=== PATIENT | female | born 1930 | race Caucasian/White ===

== ENCOUNTER 2017-04-04 13:44 | Inpatient (IN) | payer MEDICARE ==
[~2017-04-04] VITALS: Ht 162.6 cm; Wt 74.4 kg
--- NOTE | 2017-04-04 13:52 | NUR ---
PT ANGEL FROM [facility]. PER REPORT, PT IS MORE ALTERED THAN USUAL. WAS SEEN AT A DIFFERENT HOSPITAL 2 DAYS AGO. PLACED ON MONITOR. 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 STABLE VITALS AWAITING MD CASTRO.
--- NOTE | 2017-04-04 13:56 | NUR ---
DR HER AT BEDSIDE FOR EVAL.
--- NOTE | 2017-04-04 14:06 | NUR ---
IV LINE STARTED BLOOD DRAWN AND SENT TO LAB.
--- NOTE | 2017-04-04 14:16 | NUR ---
RADIOLOGY AT BEDSIDE FOR CHEST XRAY.
[2017-04-04 14:18] LABS: BASOPHILS # (AUTO) 0.1 /CMM (0.0-0.2); BASOPHILS % (AUTO) 0.4 % (0.0-2.0); EOSINOPHILS # (AUTO) 0.1 /CMM (0.0-0.7); EOSINOPHILS % (AUTO) 0.4 % (0.0-6.0); HEMATOCRIT 41 % (33-45); HEMOGLOBIN 13.1 g/dL (11.5-14.8); LYMPHOCYTES # (AUTO) 1.5 /CMM (0.8-4.8); LYMPHOCYTES % (AUTO) 10.5 % (20.0-44.0); MEAN CORPUSCULAR HEMOGLOBIN 28 PG (26.0-33.0); MEAN CORPUSCULAR HGB CONC 32 g/dl (31.0-36.0); MEAN CORPUSCULAR VOLUME 86 fL (82-100); MONOCYTES % (AUTO) 7.3 % (2.0-12.0); NEUTROPHILS # (AUTO) 11.5 /CMM (1.8-8.9); NEUTROPHILS % (AUTO) 81.4 % (43.0-81.0); PLATELET COUNT (AUTO) 368 /CMM (150-450); RED BLOOD CELL COUNT(AUTO) 4.73 MIL/uL (4.0-5.2); WHITE BLOOD COUNT (AUTO) 14.1 K/uL (4.3-11.0)
[2017-04-04] MEDS ORDERED: IV NS 0.9% 1,000 ML IV ONE ×2 (14:30→15:00)
[2017-04-04 14:35] LABS: INR 1.42 (0.87-1.13)
[2017-04-04] MEDS ORDERED: ZOLP5TAB2 PO (14:37)
[2017-04-04] MEDS ORDERED: MEMA5TAB PO (14:37)
[2017-04-04] MEDS ORDERED: SIMV20TA6 PO (14:37)
[2017-04-04] MEDS ORDERED: QUET25TA PO (14:37)
[2017-04-04] MEDS ORDERED: NIFE10CA2 PO (14:37)
[2017-04-04] MEDS ORDERED: DIVA250T6 PO ×2 (14:37)
[2017-04-04] MEDS ORDERED: QUET50TA PO (14:37)
[2017-04-04 14:39] LABS: APPEARANCE,URINE CLEAR (CLEAR); BILIRUBIN,URINE 1+ (NEGATIVE); BLOOD, URINE NEGATIVE Ery/uL (NEGATIVE); COLOR,URINE YELLOW (YELLOW); KETONES,URINE NEGATIVE (NEGATIVE); LEUKOCYTE ESTERASE ,URINE NEGATIVE (NEGATIVE); NITRITE, URINE NEGATIVE (NEGATIVE); PROTEIN,URINE TRACE mg/dl (NEGATIVE); UGLUCOSE NEGATIVE (NEGATIVE); UROBILINOGEN,URINE 0.2 EU/dL (0.2)
[2017-04-04 14:41] LABS: TROPONIN I < 0.017 ng/mL (0.00-0.056)
[2017-04-04 14:44] LABS: BACTERIA,URINE Few /HPF (None Seen); RBC,URINE 0-2 /HPF (0-2); SQUAMOUS EPITHELIAL CELL,UR Moderate /HPF (None Seen)
[2017-04-04 14:49] LABS: ALANINE AMINOTRANSFERASE 30 U/L (12-78); ALBUMIN 2.1 g/dL (3.4-5.0); ALKALINE PHOSPHATASE 87 U/L (46-116); ASPARTATE AMINOTRANSFERASE 61 U/L (15-37); BILIRUBIN,DIRECT 0.2 mg/dL (0.0-0.2); BILIRUBIN,TOTAL 0.7 mg/dL (0.2-1.0); CALCIUM, SERUM 9.5 mg/dL (8.5-10.1); CARBON DIOXIDE 31 mmol/L (21-32); CHLORIDE 117 mmol/L (98-107); CREATININE 1.1 mg/dL (0.6-1.3); GLUCOSE 131 mg/dL (74-106); POTASSIUM 4.1 mmol/L (3.5-5.1); UREA NITROGEN, BLOOD 49 mg/dL (7-18)
[2017-04-04 14:50] LABS: SODIUM SERUM 158 mmol/L (136-145)
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
--- NOTE | 2017-04-04 15:19 | NUR ---
DR. MARIANGEL OLSON.
[2017-04-04] MEDS ORDERED: IV D5/0.45 NACL 1,000 ML IV PRN (15:46)
[2017-04-04] MEDS ORDERED: ONDANSETRON HCL/PF 4 MG/2 ML VIAL IVP PRN (16:00)
[2017-04-04] MEDS ORDERED: MAGNESIUM HYDROXIDE 30 ML UDC PO PRN (16:00)
[2017-04-04] MEDS ORDERED: Z GUARD REMEDY 2 OZ OINT TP PRN (16:00)
[2017-04-04] MEDS ORDERED: ZOLPIDEM TARTRATE 5 MG TABLET PO PRN (16:00)
[2017-04-04] MEDS ORDERED: MAG HYDROX/AL HYDROX/SIMETH 30 ML UDC PO PRN (16:00)
--- NOTE | 2017-04-04 16:44 | NUR ---
PT TRANSFERED TO 324.2 BEDSIDE REPORT GIVEN TO MARIBELL.
[2017-04-04] MEDS: HYDROCODONE/APAP 5/325MG 1 EACH TABLET PO PRN (18:07)
--- NOTE | 2017-04-04 19:14 | NUR ---
RN NOTES: DR AUGUST ORDERED A STAT XRAY OF HIP
--- NOTE | 2017-04-04 19:30 | NUR ---
TELE/RN NOTES RECEIVED PT. LYING IN BED. PT. IS CONFUSED AND ONLY ALERT TO SELF. BREATHING EVEN AND UNLABORED ON ROOM AIR. NO SOB, RESPIRATORY DISTRESS OR S/S OF PAIN NOTED AT THIS TIME. PT. WITH EXTERNAL AUTOMATION QA TESTER PRESENT AND INTACT. CURRENT RHYTHM = SINUS RHYTHM HR 78. PT. WITH RIGHT AC 22 GAUGE PERIPHERAL IV PRESENT, PATENT AND INTACT ADMINISTERING TO PT. D5 1/2 NS @ 125 ML/HR. BED LOCKED AND IN LOWEST POSITION, SIDE RAILS UP X3, BED ALARM ON, CALL LIGHT WITHIN REACH, WILL CONTINUE TO MONITOR.
--- NOTE | 2017-04-04 19:40 | NUR ---
RN NOTES: PATIENT CAME FROM ER AT 1640. PATIENT CONFUSED. AOX1. SPEECH WAS UNCLEAR. AFTER HYDRATION AND AT END OF SHIFT, PATIENT SEEMS MORE AWARE OF SURROUNDINGS WITH CLEAR SPEECH. IV ON RIGHT AC GAUGE 20 WAS NOT PATENT. A NEW IV LINE WAS STARTED ON RIGHT AC GAUGE 22, IV HYDRATION STARTED RIGHT AWAY. PATIENT PROVIDED WITH WATER, 480 CC OF APPLE AND CRANBERRY JUICE. PATIENT TOLERATING VERY WELL. NO COUGHING UPON SWALLOW. NO SIGNS OF ASPIRATION. CONTACTED [facility] FOR PADS FOR SEIZURE PRECAUTIONS. NO SEIZURES NOTED DURING SHIFT PATIENT ON TELE MONITOR WITH SINUS RHYTHM -SINUS TACHYCARDIA , HEART RATES OF 60-102. FACIAL GRIMACING INDICATE THAT PAIN HAS SUBSIDED AFTER NORCO ADMINISTRATION PATIENT REFUSED SKIN PICTURES, BENEFITS AND RISKS EXPLAINED. BED IN LOWEST LOCKED POSITION.CALL LIGHT WITHIN REACH. ENDORSED TO NEXT SHIFT
[2017-04-04 20:00] VITALS: BP 104/60
--- NOTE | 2017-04-04 21:26 | NUR ---
TELE/RN NOTES NOTIFIED [facility] [employer]ER[employer]ED M[employer] RECORDER DR. DES AUGUST ORDERED STAT BILATERAL HIP XRAY DUE TO PT. EXPERIENCING PAIN WHEN MOVING/REPOSITIONING. PT. IS UNABLE TO TURN AND REPOSITION AT THIS TIME DUE TO PAIN. REPORTING CONSULTANT RECOMMENDED CT PELVIS INSTEAD OF BILATERAL HIP XRAY. PER DR. NUNES NEW ORDER: CANCEL STAT BILATERAL HIP XRAY, ORDER CT PELVIS WITHOUT CONTRAST AND MORPHINE 2MG IV Q4 HOUR PRN SEVERE PAIN. WILL CARRY OUT ORDERS. WILL CONTINUE TO MONITOR.
[2017-04-04] MEDS ORDERED: MORPHINE SULFATE INJ 2 MG/ML DISP.SYRIN IV PRN (21:30)
[2017-04-04] MEDS ORDERED: CEFTRIAXONE 1 G in IV D5W 50 ML IV SCH (22:00)
--- NOTE | 2017-04-04 22:13 | NUR ---
PT IN TOO MUCH PAIN FOR CT SCAN, FELICITA BROOKE WILL CALL WHEN READY.
[2017-04-04] MEDS ORDERED: CEFTRIAXONE 1 G VIAL ONE (22:43)
--- NOTE | 2017-04-04 23:53 | NUR ---
TELE/RN NOTES PT. LEFT THE FLOOR VIA BED ACCOMPANIED BY RADIOLOGY TECHS AND NURSE FOR CT OF PELVIS WITHOUT CONTRAST. WILL CONTINUE TO MONITOR.
--- NOTE | 2017-04-05 00:15 | NUR ---
TELE/RN NOTES PT. ARRIVED BACK TO THE FLOOR VIA BED FROM CT PELVIS WITHOUT CONTRAST. WILL CONTINUE TO MONITOR.
--- NOTE | 2017-04-05 06:39 | NUR ---
MS/RN NOTES PT. IS LYING IN BED RESTING. BREATHING EVEN AND UNLABORED ON ROOM AIR. NO SOB, RESPIRATORY DISTRESS OR S/S OF PAIN NOTED AT THIS TIME. PT. WITH RIGHT AC 22 GAUGE PERIPHERAL IV PRESENT, PATENT AND INTACT ADMINISTERING TO PT. D5 1/2 NS @ 125 ML/HR. ALL PT. NEEDS MET. PT. CONTINUES TO REFUSE TURNING AND REPOSITIONING. EDUCATED PT. ON IMPORTANCE OF TURNING AND REPOSITIONING, PT. IS ALERT TO SELF AND CONTINUES TO REFUSE. PT. CONTINUES TO REFUSE PICTURES AT THIS TIME. BED LOCKED AND IN LOWEST POSITION, SIDE RAILS UP X3, BED ALARM ON, CALL LIGHT WITHIN REACH, WILL ENDORSE TO DAYSSDFT NURSE FOR CONTINUITY OF CARE.
[2017-04-05 06:44] LABS: BASOPHILS % (AUTO) 0.2 % (0.0-2.0); EOSINOPHILS # (AUTO) 0.2 /CMM (0.0-0.7); EOSINOPHILS % (AUTO) 1.4 % (0.0-6.0); HEMATOCRIT 35 % (33-45); HEMOGLOBIN 11.2 g/dL (11.5-14.8); LYMPHOCYTES # (AUTO) 1.4 /CMM (0.8-4.8); LYMPHOCYTES % (AUTO) 11.5 % (20.0-44.0); MEAN CORPUSCULAR HEMOGLOBIN 28 PG (26.0-33.0); MEAN CORPUSCULAR HGB CONC 32 g/dl (31.0-36.0); MEAN CORPUSCULAR VOLUME 86 fL (82-100); MONOCYTES # (AUTO) 0.9 /CMM (0.1-1.30); MONOCYTES % (AUTO) 7.1 % (2.0-12.0); NEUTROPHILS # (AUTO) 9.8 /CMM (1.8-8.9); NEUTROPHILS % (AUTO) 79.8 % (43.0-81.0); PLATELET COUNT (AUTO) 315 /CMM (150-450); RDW COEFFICIENT OF VARIATION 15.6 (11.5-15.0); RED BLOOD CELL COUNT(AUTO) 4.04 MIL/uL (4.0-5.2); WHITE BLOOD COUNT (AUTO) 12.3 K/uL (4.3-11.0)
[2017-04-05 07:23] LABS: ALANINE AMINOTRANSFERASE 21 U/L (12-78); ALBUMIN 1.6 g/dL (3.4-5.0); ALKALINE PHOSPHATASE 64 U/L (46-116); ASPARTATE AMINOTRANSFERASE 43 U/L (15-37); BILIRUBIN,TOTAL 0.4 mg/dL (0.2-1.0); CALCIUM, SERUM 8.4 mg/dL (8.5-10.1); CARBON DIOXIDE 30 mmol/L (21-32); CHLORIDE 121 mmol/L (98-107); CREATININE 0.8 mg/dL (0.6-1.3); GLUCOSE 88 mg/dL (74-106); MAGNESIUM 2.5 mg/dL (1.8-2.4); PHOSPHORUS 2.4 mg/dL (2.5-4.9); POTASSIUM 3.2 mmol/L (3.5-5.1); TOTAL PROTEIN, SERUM 7.3 g/dL (6.4-8.2); UREA NITROGEN, BLOOD 31 mg/dL (7-18)
[2017-04-05 07:25] LABS: CHOLESTEROL 164 mg/dL (<200); HDL CHOLESTEROL 33 mg/dL (40-60); LDL 113 mg/dL (0-99); TRIGLYCERIDES 95 mg/dL (30-150)
[2017-04-05 07:41] LABS: SODIUM SERUM 159 mmol/L (136-145)
[2017-04-05 08:00] VITALS: BP 119/69
[2017-04-05] MEDS ORDERED: IV D5W 500 ML IV PRN (09:00)
--- NOTE | 2017-04-05 10:10 | NUR ---
RN NOTES D5 WATER ORDER INITIATED. PATIENT'S IV LINE NOW PATENT
[2017-04-05] MEDS: IV D5W 1,000 ML IV PRN (10:18)
[2017-04-05] MEDS ORDERED: POTASSIUM CHLORIDE 20 MEQ TAB.PRT.SR PO SCH (11:30)
[2017-04-05] MEDS ORDERED: POTASSIUM CHLORIDE 20 MEQ POWDER PACKET PO SCH (11:39)
[2017-04-05] MEDS ORDERED: K PHOS NEUTRAL 250 MG TABLET PO ONE ×2 (13:00→17:00)
[2017-04-05] MEDS: ACETAMINOPHEN 325 MG TABLET PO PRN (15:14)
[2017-04-05 16:00] VITALS: BP 106/71
--- NOTE | 2017-04-05 19:30 | NUR ---
RN NOTES: PATIENT RESTING IN BED. NONLABORED BREATHING NOTED ON ROOM AIR. NO FACIAL GRIMACING.PATIENT AOX1. DENIES PAIN.MIDLINE ON RIGHT UPPER ARM GAUGE 18 PATENT AND INTACT WITH IV FLUIDS RUNNING. PATIENT TURNED AND REPOSITIONED Q 2 HOURS. SKIN KEPT CLEAN AND DRY. DRESSING ON RIGHT KNEE CHANGED AND MONITORED FOR CHANGES. DURING SHIFT PATIENT NOTED TO BE PULLING IV LINES. DR AUGUST NOTIFIED AND ORDERED SOFT RESTRAINTS ON BOTH UPPER EXTREMITIES. PATIENT CHECKED ON EVERY 15 MINS, RELEASE OF RESTRAINTS DONE PER PROTOCOL, NO SIGNS OF DISTRESS OR INJURY NOTED. PATIENT REORIENTED AND OFFERED FLUIDS AND TOILETING. DR AUGUST ORDERED A MIDLINE INSERTION. MIDLINE WAS INSERTED DURING THIS SHIFT, GAUGE 18. DR AUGUST AWARE OF LABS INCLUDING SODIUM . ORDERED TO DEXTROSE 5 WITH WATER AT 125ML/HOUR BED IN LOWEST LOCKED POSITION. CALL LIGHT WITHIN REACH. ENDORSED TO NEXT SHIFT
--- NOTE | 2017-04-05 19:30 | NUR ---
RN NOTES: NO SEIZURES NOTED DURING SHIFT, SEIZURE PRECUATIONS IMPLEMENTED THROUGHOUT SHIFT
--- NOTE | 2017-04-05 19:35 | NUR ---
MS/RN NOTES RECEIVED PT. LYING IN BED. PT. IS AWAKE, ALERT AND ORIENTED X1. PT. IS CONFUSED. BREATHING EVEN AND UNLABORED ON ROOM AIR. NO SOB, RESPIRATORY DISTRESS OR S/S OF PAIN NOTED AT THIS TIME. PT. WITH RIGHT UPPER ARM MIDLINE PRESENT, PATENT AND INTACT ADMINISTERING TO PT. D5W @ 125 ML/HR. PT. WITH BILATERAL SOFT WRIST RESTRAINTS PRESENT AND INTACT. CIRCULATION CHECK DONE. BED LOCKED AND IN LOWEST POSITION, SIDE RAILS UP X3, BED ALARM ON, CALL LIGHT WITHIN REACH, WILL CONTINUE TO MONITOR.
[2017-04-05 20:00] VITALS: BP 123/71
[2017-04-05] MEDS: CEFTRIAXONE 1 G in IV NS 0.9% 50 ML IV SCH (21:50)
[2017-04-06] MEDS: IV D5W 1,000 ML IV PRN ×3 (02:52→19:48)
--- NOTE | 2017-04-06 06:27 | NUR ---
MS/RN NOTES PT. IS LYING IN BED RESTING. BREATHING EVEN AND UNLABORED ON ROOM AIR. NO SOB, RESPIRATORY DISTRESS OR S/S OF PAIN NOTED AT THIS TIME AND THROUGHOUT SHIFT. PT. WITH RIGHT UPPER ARM MIDLINE PRESENT, PATENT AND INTACT ADMINISTERING TO PT. D5W @ 125 ML/HR. PT. WITH BILATERAL SOFT WRIST RESTRAINTS PRESENT AND INTACT. CIRCULATION CHECK DONE. ALL PT. NEEDS MET. BED LOCKED AND IN LOWEST POSITION, SIDE RAILS UP X3, BED ALARM ON, CALL LIGHT WITHIN REACH, WILL ENDORSE TO DAYSHIFT NURSE FOR CONTINUITY OF CARE.
[2017-04-06 08:00] VITALS: BP 108/73
--- NOTE | 2017-04-06 08:00 | NUR ---
RN NOTES RECEIVED PATIENT IN THE BED , A/OX1/2, CONFUSED,TOTAL CARE, PATIENT HAS NO RESPIRATORY DISTRESS, V/S TAKEN, PATIENT ON BILATERAL ARMS SOFT RESTRAIN CHECKED FOR CIRCULATION, ASSIST TURN AND REPOSITION Q 2 HR,IV MIDLINE ON RIGHT UPPER ARM INFUSING D5W 125 ML/HR, PATIENT NEEDS ATTENDED AND ANTICIPATED. PATIENT MED COMPLIANT. CONTINUED MONITORING.
[2017-04-06 08:19] LABS: CALCIUM, SERUM 7.9 mg/dL (8.5-10.1); CARBON DIOXIDE 28 mmol/L (21-32); CHLORIDE 113 mmol/L (98-107); CREATININE 0.8 mg/dL (0.6-1.3); GLUCOSE 144 mg/dL (74-106); PHOSPHORUS 2.1 mg/dL (2.5-4.9); POTASSIUM 3.4 mmol/L (3.5-5.1); SODIUM SERUM 149 mmol/L (136-145); UREA NITROGEN, BLOOD 19 mg/dL (7-18)
[2017-04-06] MEDS ORDERED: POTASSIUM CHLORIDE 20 MEQ POWDER PACKET PO SCH (11:30)
[2017-04-06] MEDS: HYDROCODONE/APAP 5/325MG 1 EACH TABLET PO PRN ×2 (12:13→17:17)
--- NOTE | 2017-04-06 12:13 | NUR ---
RN NOTES ADMINISTERED NARCO 5/325 MG PO PRN FOR BILATERAL LOWER LEGS PAIN 08/02, PER PATIENT REQUEST, V/S TAKEN BP-108/75, P-80, CALL LIGHT WITHIN TO REACH, CHECKED SOFT RESTRAIN ON BILATERAL WRIST, Q 2 HR FOR CIRCULATION, ASSIST TURN AND REPOSITION Q 2 HR, CONTINUED MONITORING.
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
[2017-04-06 16:00] VITALS: BP 117/82
[2017-04-06] MEDS: HYDROGEL DRESSING 90 GM TUBE TP SCH (17:16)
--- NOTE | 2017-04-06 17:17 | NUR ---
RN NOTES ADMINISTERED NARCO 5/325 MG PO PRN FOR GENERALIZED PAIN, V/S TAKEN BP-117/82, P-96, ASSIST TURN AND REPOSITION Q 2 HR, CALL LIGHT WITHIN TO REACH, CHECKED SOFT RESTRAIN FOR CIRCULATION Q 2 HR, CONTINUED MONITORING.
[2017-04-06] MEDS ORDERED: NEUTRA PHOS 1 POWD.PACKET PO ONE (18:00)
--- NOTE | 2017-04-06 18:30 | NUR ---
RN NOTES MEDICATION WERE ADMINISTERED FOR PAIN EFFECTIVE, ASSIST EATING, TURN AND REPOSITION Q 2 HR, NEED RENDERED, CHECKED SOFT WRIST RESTRAIN Q 2 HR, NO ACUTE DISTRESS AT THIS TIME. CONTINUED MONITORING. ENDORSED ONCOMING NURSE FOR JERRI.
--- NOTE | 2017-04-06 19:32 | NUR ---
MS RN OPENING NOTES: RECEIVED PT IN BED AND IS AWAKE AT THIS TIME IN SEMI-MILLER'S POSITION. PT IS A/OX1. PT ON ROOM AIR AND TOLERATING WELL. PT ON BILATERAL SOFT WRIST RESTRAINTS. BED ALARM ACTIVATED. PT HAS IVON MIDLINE AND IS BEING INFUSED WITH D5W AT 125ML/HR. CALL LIGHT WITHIN PT'S REACH. BED KEPT IN LOW, LOCKED POSITION, AND SIDE RAILS X 3 UP. WILL CONTINUE TO MONITOR PT.
[2017-04-06 20:00] VITALS: BP 113/60
[2017-04-06 20:01] VITALS: BP 113/60
[2017-04-06] MEDS: CEFTRIAXONE 1 G in IV NS 0.9% 50 ML IV SCH (21:12)
[2017-04-07] MEDS: IV D5W 1,000 ML IV PRN ×3 (04:33→22:29)
--- NOTE | 2017-04-07 06:47 | NUR ---
MS RN CLOSING NOTES: ALL NEEDS WERE ATTENDED AND ANTICIPATED FOR. PT IS ON ROOM AIR AND TOLERATING WELL. PT KEPT CLEAN, DRY, AND COMFORTABLE. 2 HOUR CHECKS FOR RESTRAINTS HAVE BEEN PERFORMED. PT STILL ON RESTRAINTS FOR ATTEMPTING TO PULL OUT IV LINES. WOUND TREATMENT PERFORMED ORDERED. PT HAS IV ON IVON AND IS BEING INFUSED WITH D5W AT 125ML/HR. CALL LIGHT WITHIN PT'S REACH. BED KEPT IN LOW, LOCKED POSITION, AND SIDE RAILS X 2UP. WILL ENDORSE TO AM NURSE FOR JERRI.
[2017-04-07 08:00] VITALS: BP 102/57
[2017-04-07 09:17] LABS: BASOPHILS % (AUTO) 0.2 % (0.0-2.0); EOSINOPHILS # (AUTO) 0.1 /CMM (0.0-0.7); EOSINOPHILS % (AUTO) 0.9 % (0.0-6.0); HEMATOCRIT 35 % (33-45); HEMOGLOBIN 11.3 g/dL (11.5-14.8); LYMPHOCYTES # (AUTO) 1.3 /CMM (0.8-4.8); LYMPHOCYTES % (AUTO) 9.9 % (20.0-44.0); MEAN CORPUSCULAR HEMOGLOBIN 28 PG (26.0-33.0); MEAN CORPUSCULAR HGB CONC 33 g/dl (31.0-36.0); MEAN CORPUSCULAR VOLUME 86 fL (82-100); MONOCYTES # (AUTO) 0.8 /CMM (0.1-1.30); MONOCYTES % (AUTO) 5.7 % (2.0-12.0); NEUTROPHILS # (AUTO) 11.3 /CMM (1.8-8.9); NEUTROPHILS % (AUTO) 83.3 % (43.0-81.0); PLATELET COUNT (AUTO) 260 /CMM (150-450); RDW COEFFICIENT OF VARIATION 15.5 (11.5-15.0); RED BLOOD CELL COUNT(AUTO) 4.04 MIL/uL (4.0-5.2); WHITE BLOOD COUNT (AUTO) 13.6 K/uL (4.3-11.0)
[2017-04-07 09:29] LABS: CALCIUM, SERUM 7.6 mg/dL (8.5-10.1); CARBON DIOXIDE 28 mmol/L (21-32); CHLORIDE 106 mmol/L (98-107); CREATININE 0.7 mg/dL (0.6-1.3); GLUCOSE 129 mg/dL (74-106); MAGNESIUM 1.9 mg/dL (1.8-2.4); PHOSPHORUS 2.7 mg/dL (2.5-4.9); POTASSIUM 3.5 mmol/L (3.5-5.1); SODIUM SERUM 143 mmol/L (136-145); UREA NITROGEN, BLOOD 9 mg/dL (7-18)
[2017-04-07] MEDS: HYDROGEL DRESSING 90 GM TUBE TP PRN ×2 (10:46→10:54)
[2017-04-07] MEDS: HYDROGEL DRESSING 90 GM TUBE TP SCH (11:01)
[2017-04-07] MEDS: HYDROCODONE/APAP 5/325MG 1 EACH TABLET PO PRN (11:10)
[2017-04-07 15:55] VITALS: BP 122/79
--- NOTE | 2017-04-07 18:00 | NUR ---
MED. X 1 FOR PAIN WITH NORCO.PTX NOTED INTERNAL ROTATION OF LT. LEG SO MD ORDERED X-RAYS.
--- NOTE | 2017-04-07 19:43 | NUR ---
MS RN OPENING NOTES: RECEIVED PT IN BED AND IS AWAKE AT THIS TIME. PT HAS BILATERAL SOFT WRIST RESTRAINTS ON AT THE MOMENT. PT HAS CALL LIGHT WITHIN REACH. BED ALARM ACTIVATED. BED KEPT IN LOW, LOCKED POSITION, AND SIDE RAILS X 2UP. PT IS A/OX1. PT HAS IVON MIDLINE AND IS BEING INFUSED WITH D5W AT 125ML/HR. WILL CONTINUE TO MONITOR PT.
[2017-04-07 20:00] VITALS: BP 110/65
[2017-04-07] MEDS: CEFTRIAXONE 1 G in IV NS 0.9% 50 ML IV SCH (21:37)
[2017-04-08] MEDS: IV D5W 1,000 ML IV PRN ×2 (05:54→19:41)
--- NOTE | 2017-04-08 07:15 | NUR ---
MS RN CLOSING NOTES: ALL NEEDS WERE ATTENDED AND ANTICIPATED FOR. PT IS ON ROOM AIR AND TOLERATING WELL. PT KEPT CLEAN, DRY, AND COMFORTABLE. 2 HOUR CHECKS FOR RESTRAINTS HAVE BEEN PERFORMED. PT STILL ON RESTRAINTS FOR ATTEMPTING TO PULL OUT IV LINES. WOUND TREATMENT PERFORMED ORDERED. PT HAS IV ON IVON AND IS BEING INFUSED WITH D5W AT 125ML/HR. CALL LIGHT WITHIN PT'S REACH. BED KEPT IN LOW, LOCKED POSITION, AND SIDE RAILS X 2UP. ENDORSED TO AM NURSE FOR JERRI.
[2017-04-08 07:58] VITALS: BP 111/71
--- NOTE | 2017-04-08 08:30 | NUR ---
on yannick. wrist restraints all day,med. x1 for pain.looking for facility for placement.
[2017-04-08 11:04] LABS: BASOPHILS % (AUTO) 0.3 % (0.0-2.0); EOSINOPHILS # (AUTO) 0.2 /CMM (0.0-0.7); EOSINOPHILS % (AUTO) 1.7 % (0.0-6.0); HEMATOCRIT 33 % (33-45); HEMOGLOBIN 10.9 g/dL (11.5-14.8); LYMPHOCYTES # (AUTO) 1.8 /CMM (0.8-4.8); LYMPHOCYTES % (AUTO) 14.2 % (20.0-44.0); MEAN CORPUSCULAR HEMOGLOBIN 28 PG (26.0-33.0); MEAN CORPUSCULAR HGB CONC 33 g/dl (31.0-36.0); MEAN CORPUSCULAR VOLUME 84 fL (82-100); MONOCYTES # (AUTO) 0.9 /CMM (0.1-1.30); MONOCYTES % (AUTO) 7.1 % (2.0-12.0); NEUTROPHILS # (AUTO) 9.6 /CMM (1.8-8.9); NEUTROPHILS % (AUTO) 76.7 % (43.0-81.0); PLATELET COUNT (AUTO) 199 /CMM (150-450); RDW COEFFICIENT OF VARIATION 15.4 (11.5-15.0); RED BLOOD CELL COUNT(AUTO) 3.96 MIL/uL (4.0-5.2); WHITE BLOOD COUNT (AUTO) 12.5 K/uL (4.3-11.0)
[2017-04-08 11:27] LABS: CARBON DIOXIDE 31 mmol/L (21-32); CHLORIDE 107 mmol/L (98-107); CREATININE 0.7 mg/dL (0.6-1.3); GLUCOSE 123 mg/dL (74-106); MAGNESIUM 1.9 mg/dL (1.8-2.4); PHOSPHORUS 2.9 mg/dL (2.5-4.9); POTASSIUM 3.5 mmol/L (3.5-5.1); SODIUM SERUM 146 mmol/L (136-145); UREA NITROGEN, BLOOD 7 mg/dL (7-18)
[2017-04-08] MEDS: HYDROGEL DRESSING 90 GM TUBE TP PRN (11:45)
[2017-04-08] MEDS: HYDROGEL DRESSING 90 GM TUBE TP SCH (11:47)
[2017-04-08] MEDS: HYDROCODONE/APAP 5/325MG 1 EACH TABLET PO PRN (11:56)
[2017-04-08] MEDS ORDERED: ZOLPIDEM TARTRATE 5 MG TABLET PO PRN (12:30)
[2017-04-08 16:55] VITALS: BP_SYST 109; BP_SYST 114; BP_DIAS 66; BP_DIAS 85
[2017-04-08] MEDS ORDERED: SIMVASTATIN 20 MG TABLET PO SCH (18:00)
--- NOTE | 2017-04-08 18:00 | NUR ---
no chg. in status.
[2017-04-08] MEDS: QUETIAPINE FUMARATE 25 MG TABLET PO SCH (18:28)
[2017-04-08] MEDS: DIVALPROEX SODIUM 250 MG TABLET.DR PO SCH (18:29)
--- NOTE | 2017-04-08 19:20 | NUR ---
MS RN OPENING NOTES: RECEIVED PT IN BED AND IS AWAKE AT THIS TIME. PT MUMBLING AND YELLING. PT HAS BILATERAL SOFT WRIST RESTRAINTS ON AT THE MOMENT. PT HAS CALL LIGHT WITHIN REACH. BED ALARM ACTIVATED. BED KEPT IN LOW, LOCKED POSITION, AND SIDE RAILS X 2UP. PT IS A/OX1. PT HAS IVON MIDLINE AND IS BEING INFUSED WITH D5W AT 125ML/HR. WILL CONTINUE TO MONITOR PT.
[2017-04-08 20:00] VITALS: BP 108/76
[2017-04-08] MEDS: CEFTRIAXONE 1 G in IV NS 0.9% 50 ML IV SCH (21:02)
[2017-04-08] MEDS ORDERED: DIVALPROEX SODIUM 250 MG TABLET.DR PO SCH (22:00)
[2017-04-08] MEDS ORDERED: QUETIAPINE FUMARATE 25 MG TABLET PO SCH (22:00)
[2017-04-09] MEDS: IV D5W 1,000 ML IV PRN ×2 (03:47→12:53)
--- NOTE | 2017-04-09 06:33 | NUR ---
MS RN CLOSING NOTES: ALL NEEDS WERE ATTENDED AND ANTICIPATED FOR. PT KEPT CLEAN, DRY, AND COMFORTABLE. WOUND TREATMENT PERFORMED ORDERED. PT OCCASIONALLY SCREAMS AND TRIES TO PULL OUT MIDLINE. PT ON BILATERAL SOFT WRIST RESTRAINTS AT THIS TIME. 2 HOUR RELEASE CHECKS HAVE BEEN PERFORMED BUT HAVE BEEN APPLIED BACK D/T PATIENT BEING HOSTILE. PT ON ROOM AIR AND TOLERATING WELL. CALL LIGHT WITHIN PT'S REACH. BED KEPT IN LOW, LOCKED POSITION, AND SIDE RAILS X 2UP. WILL ENDORSE TO AM NURSE FOR JERRI.
--- NOTE | 2017-04-09 07:10 | NUR ---
RN NOTES PATIENT RESTING IN BED. NONLABORED BREATHING NOTED ON ROOM AIR. NO SIGNS OF DISTRESS. PATIENT AOX1, CONFUSED. NO SLURRED SPEECH NTOED. MIDLINE ON RIGHT UPPER EXTREMITY PATENT AND INTACT. PATIENT ON BILATERAL SOFT WRIST RESTRAINTS. CALL LIGHT WITHIN REACH. BED IN LOWEST LOCKED POSITION. CALL LIGHT WITHIN REACH. WILL CONTINUE TO MONITOR
[2017-04-09 08:00] VITALS: BP 108/73
[2017-04-09] MEDS ORDERED: NIFEdipine (10MG) 10 MG CAPSULE PO SCH (09:00)
[2017-04-09] MEDS ORDERED: MEMANTINE HCL 5 MG TABLET PO SCH (09:00)
[2017-04-09 09:18] LABS: BASOPHILS % (AUTO) 0.2 % (0.0-2.0); EOSINOPHILS # (AUTO) 0.2 /CMM (0.0-0.7); HEMATOCRIT 32 % (33-45); HEMOGLOBIN 10.4 g/dL (11.5-14.8); LYMPHOCYTES # (AUTO) 1.3 /CMM (0.8-4.8); LYMPHOCYTES % (AUTO) 12.5 % (20.0-44.0); MEAN CORPUSCULAR HEMOGLOBIN 28 PG (26.0-33.0); MEAN CORPUSCULAR HGB CONC 33 g/dl (31.0-36.0); MEAN CORPUSCULAR VOLUME 85 fL (82-100); MONOCYTES # (AUTO) 0.8 /CMM (0.1-1.30); NEUTROPHILS # (AUTO) 7.8 /CMM (1.8-8.9); NEUTROPHILS % (AUTO) 77.3 % (43.0-81.0); PLATELET COUNT (AUTO) 229 /CMM (150-450); RDW COEFFICIENT OF VARIATION 15.6 (11.5-15.0); RED BLOOD CELL COUNT(AUTO) 3.78 MIL/uL (4.0-5.2)
[2017-04-09 09:30] LABS: CALCIUM, SERUM 8.5 mg/dL (8.5-10.1); CARBON DIOXIDE 26 mmol/L (21-32); CHLORIDE 106 mmol/L (98-107); CREATININE 0.7 mg/dL (0.6-1.3); GLUCOSE 119 mg/dL (74-106); PHOSPHORUS 3.3 mg/dL (2.5-4.9); POTASSIUM 3.6 mmol/L (3.5-5.1); SODIUM SERUM 140 mmol/L (136-145); UREA NITROGEN, BLOOD 6 mg/dL (7-18)
[2017-04-09] MEDS: QUETIAPINE FUMARATE 25 MG TABLET PO SCH ×2 (09:41→17:39)
[2017-04-09] MEDS: DIVALPROEX SODIUM 250 MG TABLET.DR PO SCH ×2 (09:41→17:39)
[2017-04-09] MEDS: HYDROGEL DRESSING 90 GM TUBE TP SCH (09:44)
[2017-04-09] MEDS ORDERED: CEPH-570 PO (14:09)
[2017-04-09] MEDS: ACETAMINOPHEN 325 MG TABLET PO PRN (15:55)
--- NOTE | 2017-04-09 15:57 | NUR ---
RN NOTES: FACIAL GRIMACING INDICATING MILD PAIN. TYLENOL ADMINISTERED
[2017-04-09 16:00] VITALS: BP 100/72
--- NOTE | 2017-04-09 16:52 | NUR ---
RN NOTES: NO FACIAL GRIMACING NOTED
--- NOTE | 2017-04-09 17:40 | NUR ---
RN NOTES: PATIENT DISCHARGED TO [facility] PER DR ISAAC PEDERSEN'S ORDERS. MIDLINE REMOVED. TIP INTACT. NO SIGNS OF BLEEDING NOTED. NO SOB AFTER REMOVAL. PATIENT'S VS WNL. PATIENT DENYING PAIN AT THE MOMENT. PATIENT REFUSED TO HAVE SKIN PICTURES TAKEN. AFTER DRESSING CHANGED. GOT FRUSTRATED. BENEFITS AND RISKS EXPLAINED TO PATIENT. PATIENT ALSO REFUSED VACCINES. REPORT GIVEN TO FELICITA DEL REAL AT [facility]. ALL VALUABLES GIVEN TO PATIENT. PATIENT LEFT WITH AMBULANCE STABLE PATIENT TURNED AND REPOSITIONED Q 2 HOURS. VISUAL CHECKS DONE 15 MINS WHILE PATIENT ON SOFT BILATERAL WRIST RESTRAINTS. PATIENT PROVIDED WITH WATER, TOILETING, AND ASSESSED FOR PAIN EVERY HOUR. NO SIGNS OF DISTRESS ON WRISTS. NO PAIN NOTED. WHEN RESTRAINTS RELEASED PER PROTOCOL, PATIENT ATTEMPTING TO REMOVE MIDLINE.
== END 2017-04-09 17:56 | DRG 682 ==
LOC: ER 13:47 → TELE 16:47 → MED 04-05 05:56
PROVIDERS: ADMIT Internal Medicine; ATTEND Internal Medicine
PROC: 05H533Z Insertion of Infusion Device into Right Subclavian Vein, Percutaneous Approach (ICD-10-PCS; principal; 2017-04-05)
DX: N17.0 Acute kidney failure with tubular necrosis (principal); G93.41 Metabolic encephalopathy; L89.152 Pressure ulcer of sacral region, stage 2; E87.0 Hyperosmolality and hypernatremia; N39.0 Urinary tract infection, site not specified; E86.0 Dehydration; E88.09 Other disorders of plasma-protein metabolism, not elsewhere classified; F03.90 Unspecified dementia, unspecified severity, without behavioral disturbance, psychotic disturbance, mood disturbance, and anxiety; E83.51 Hypocalcemia; I10 Essential (primary) hypertension; L80 Vitiligo; E78.5 Hyperlipidemia, unspecified; M25.461 Effusion, right knee; D72.829 Elevated white blood cell count, unspecified
CPT/HCPCS: 36415; 36569; 71045-TC; 72192-TC; 73502; 73560-TC; 80048-TC; 80053-TC; 80061-TC; 80076-TC; 81000-TC; 83605-TC; 83735-TC; 84100-TC; 84484-TC; 85025-TC; 85730-TC; 86706; 86803; 87040-TC; 87081-TC; 87086-TC; 87340; A4216; A4606; A6248; A6402; J0696; J3490; J7030; J7060; J7070; Z7610